=== PATIENT | male | born 1990 | race Caucasian/White ===

== ENCOUNTER 2021-11-03 18:29 | Emergency (ER) | payer SELFPAY ==
[~2021-11-03] VITALS: Ht 180.3 cm; Wt 120.2 kg
[2021-11-03 18:39] VITALS: BP 133/88
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
[2021-11-03] MEDS ORDERED: TETRAHYDROZOLINE 0.05% OP 15 ML BTL OP SCH (19:15)
[2021-11-03] MEDS ORDERED: FLUORESCEIN OPTH STRIP 1 MG OP ONE (19:15)
[2021-11-03] MEDS ORDERED: TETRACAINE HCL/PF 0.5% OPTH 4 ML BTL OP ONE (19:40)
[2021-11-03] MEDS ORDERED: TETRACAINE HCL/PF 0.5% OPTH 4 ML BTL ONE (19:41)
[2021-11-03] MEDS ORDERED: IBUP-2213 PO ×2 (20:05→21:12)
[2021-11-03] MEDS ORDERED: ERYT5OIN51 LEFT EYE ×2 (20:05→21:12)
[2021-11-03 20:23] VITALS: BP 133/88
--- NOTE | 2021-11-03 20:23 | NUR ---
Patient discharged. Written and verbal after care instructions given and explained. Patient alert, oriented and verbalized understanding of instructions. Ambulatory with steady gait. All questions addressed prior to discharge. ID band removed. Patient advised to follow up with PMD. Rx of Erythromycin and Ibuprofen given. Patient educated on indication of medication including possible reaction and side effects. Opportunity to ask questions provided and answered.
== END 2021-11-03 20:23 | disposition home or self-care (01) ==
LOC: MED 18:29
DX: S05.02XA Injury of conjunctiva and corneal abrasion without foreign body, left eye, initial encounter (principal); X58.XXXA Exposure to other specified factors, initial encounter; Y93.89 Activity, other specified; Y92.89 Other specified places as the place of occurrence of the external cause; Y99.8 Other external cause status
CPT/HCPCS: 99283